=== PATIENT | male | born 1950 | race Caucasian/White ===

== ENCOUNTER 2020-10-30 17:12 | Emergency (ER) | payer MEDICARE, SELFPAY ==
[2020-10-30 17:16] VITALS: BP 214/103; PULSE 75; RESP 18; TEMP 36.7; O2SAT 99
--- NOTE | 2020-10-30 17:19 | ED.WOUNDLAC ---
HPI - Wound/Laceration General Chief Complaint: Wound/Laceration Stated Complaint: lacerations Time Seen by Provider: 10/30/20 17:19 History of Present Illness HPI narrative: 2000 pound machine fell onto bilateral forearms and knee. He sustained cuts to both forearms. He does have some swelling to the right forearm and above the left knee. No numbness or weakness. He is able to ambulate with mild-moderate pain. Related Data Home Medications Medication Instructions Recorded Confirmed apixaban 5 mg tablet 5 mg PO BID 09/09/20 aspirin 81 mg tablet,delayed 81 mg PO DAILY 09/09/20 release losartan 50 mg tablet 50 mg PO DAILY 09/09/20 metoprolol succinate 25 mg 25 mg PO BID 09/09/20 tablet,extended release 24 hr pantoprazole 40 mg tablet,delayed 40 mg PO QAM 09/09/20 release rosuvastatin 20 mg tablet 20 mg PO DAILY 09/09/20 tacrolimus 0.5 mg capsule,extended 0.5 mg PO QAM 09/09/20 release 24 hr Allergies Allergy/AdvReac Type Severity Reaction Status Date / Time sulfamethoxazole Allergy Severe SIGNS OF Verified 10/30/20 17:35 LIVER REJECTION trimethoprim Allergy Severe SIGNS OF Verified 10/30/20 17:35 LIVER REJECTION sulfamethizole Allergy Unknown Unknown Verified 10/30/20 17:35 Review of Systems Review of Systems: All systems reviewed & are unremarkable except as noted in HPI and below Constitutional: Constitutional: Denies fever(s) Cardiovascular: Cardiovascular: Denies chest pain Respiratory: Respiratory: Denies dyspnea Gastrointestinal: Gastrointestinal: Denies nausea PMFSH Past Medical History Medical History HTN (hypertension) Family History Family History Mother Alcoholism Depression Father Lung cancer Other Family history of malignant neoplasm Hypertension Social History Social History Smoking status: Never smoker Second hand tobacco smoke exposure: No Alcohol intake: never Substance use: never Substance use type: unknown Gender identity (if verbalized by the patient): Male Exam Const: General: healthy appearing, no acute distress and alert Orientation/consciousness: patient oriented x3 HENMT: Head: normal to inspection Neck: Neck: normal visual inspection Resp: Effort & Inspection: normal respiratory effort Auscultation: clear to auscultation bilaterally, no rales, no rhonchi and no wheezes Cardio: Jugular venous distension: no JVD Rate: regular rate Rhythm: regular rhythm Heart sounds: no murmurs Other: 2+ bilateral radial pulses Skin: General skin exam: normal color Other: 7 cm irregular laceration with contused and macerated edges. Skin tear to left forearm. Minor contusion to the left knee Neuro: General: patient oriented x3 and moves all extremities Speech: normal speech Other: Distal motor and sensory intact Psych: Appearance: well kempt Affect: normal affect Course Vital Signs Vital signs: Vital Signs Temperature 36.7 C 10/30/20 17:16 Pulse Rate 75 10/30/20 17:16 Respiratory Rate 18 10/30/20 17:16 Blood Pressure 214/103 H 10/30/20 17:16 Pulse Oximetry 99 10/30/20 17:16 Temperature 36.7 C 10/30/20 19:14 Pulse Rate 72 10/30/20 19:14 Respiratory Rate 16 10/30/20 19:14 Blood Pressure 174/103 H 10/30/20 19:14 Pulse Oximetry 98 10/30/20 19:14 Procedures Laceration Laceration 1: Site: upper extremity Side (If applicable): right Size (cm): 7 Description: irregular Depth: simple, single layer Local Anesthetic: lidocaine 1% and with epi Amount of anesthesia used (mL): 8 Pre-repair: wound explored and irrigated extensively ====== Skin Level ====== Skin layer closed with: nylon Size (cm): 4-0 Number of sutures: 13 [employer]
[2020-10-30 19:14] VITALS: BP 174/103; PULSE 72; RESP 16; TEMP 36.7; O2SAT 98
== END 2020-10-30 19:16 | disposition home or self-care (01) ==
PROVIDERS: Emergency Provider Emergency Medicine; PCP Internal Medicine
DX: S51.811A Laceration without foreign body of right forearm, initial encounter (principal); S50.11XA Contusion of right forearm, initial encounter; S80.02XA Contusion of left knee, initial encounter; I10 Essential (primary) hypertension; W20.8XXA Other cause of strike by thrown, projected or falling object, initial encounter
CPT/HCPCS: 12032; 99283